=== PATIENT | male | born 1960 | race Caucasian/White ===

== ENCOUNTER 2016-11-17 05:59 | Emergency (ER) | payer BC ==
[2016-11-17 06:36] LABS: BASOPHILS 0.6 % (0.0-2.0); EOSINOPHILS 2.6 % (0.0-6.0); EOSINOPHILS# 0.2 X 10^3uL (0.0-0.4); HEMATOCRIT 46.1 % (42.0-54.0); HEMOGLOBIN 15.5 g/dL (14.0-18.0); LYMPHOCYTES 32.2 % (20.0-40.0); LYMPHOCYTES# 2.3 X 10^3uL (0.8-3.8); MEAN CORPUS. HGB CONCENTRATION 33.6 g/dL (32.0-36.0); MEAN CORPUSCULAR HEMOGLOBIN 29.1 pg (29.0-35.0); MEAN PLATELET VOLUME 9.3 fL (7.4-10.4); MONOCYTES 9.2 % (2.0-10.0); MONOCYTES# 0.6 X 10^3uL (0.2-1.0); NEUTROPHILS 55.4 % (54.0-75.0); NEUTROPHILS# 3.9 X 10^3uL (2.6-6.7); PLATELET COUNT 136 X 10^3uL (130-440); RED BLOOD COUNT 5.34 X 10^6uL (4.20-6.10); RED CELL DISTRIBUTION WIDTH 12.5 % (11.5-14.5)
[2016-11-17 06:38] LABS: BLOOD UREA NITROGEN 17 mg/dL (9-20); CALCIUM 9.8 mg/dL (8.4-10.2); CHLORIDE 106 mmol/L (98-107); EST GLOMERULAR FILTRATION RATE > 60 mL/min; POTASSIUM 3.8 mmol/L (3.5-5.1); SODIUM 140 mmol/L (137-145)
[2016-11-17 06:52] LABS: GLUCOSE 231 mg/dL (70-100)
[2016-11-17 06:53] LABS: TROPONIN I < 0.012 ng/mL (0.00-0.034)
--- NOTE | 2016-11-17 07:27 | ER PHYSICIAN DOCUMENTATION ---
Physician Documentation [facility] ([place], [place]) Name:Leonel Dia Age:56 yrs Sex:Male :1960 Arrival Date:11/17/2016 Time:05:59 Bed4 Private MD:Physician, No ED Josef Martin Disposition: 11/17/16 07:14 Discharged to Home/Self Care. Impression: Dyspnea, Insomnia. - Condition is Good. - Discharge Instructions: Altitude - ALTITUDE SICKNESS. - Medical Reconciliation form form. - Follow up: Private Physician; When: As needed; Reason: Continuance of care. - Problem is new. - Symptoms have improved. HPI: 11/17 06:08 This 56 yrs old Male presents to ER via Walk In with complaints of Shortness tl1 Of Breath. 06:08 The patient has shortness of breath at rest, while exercising, that woke him/her from tl1 sleep, that occurred. Onset: The symptom(s)/episode began/occurred gradually, 3 day(s) ago. Duration: The symptoms are continuous. The patient's shortness of breath is aggravated by exertion, light activity, prone position, is alleviated by rest, sitting up. Associated signs and symptoms: Pertinent positives: non-productive cough, Pertinent negatives: chest pain. Severity of symptoms: At their worst the symptoms were moderate. Risk Factors Risk factors for coronary artery disease include: A history of diabetes. A family history of coronary artery disease. A history of high cholesterol. A history of hypertension. The risk factors for pulmonary embolism include:. He drove out here from [place] arriving 4 days ago. For the last 3 days he has had progressive RIVERA and air hunger, especially at night. He has mild orthopnea and awakened at 0330 this AM short of breath and anxious, and was brought to the ED by his . He has had no CP , except for some sharp pleuritic CP in the right lateral chest area yesterday while on a Jeep ride. No f/c/s. No pain or swelling in his legs. No hemoptysis. No h/o, or RF for PE other than the long car trip out here.. Historical: - Allergies: No known drug Allergies; - PMHx: Diabetes - NIDDM; HYPERTENSION; - Tetanus: < 10 years. - Ebola Screening: : Patient negative for fever greater than or equal to 101.5 degrees Fahrenheit, and additional compatible Ebola Virus Disease symptoms. Patient denies exposure to infectious person. Patient denies travel to an Ebola-affected area in the 21 days before illness onset. No symptoms or risks identified at this time. . - Immunization history: Pneumococcal vaccine status is unknown, Flu Vaccine < 1 year. - Social history: Smoking status: Patient states was never smoker of tobacco. ROS: 06:29 Respiratory: Positive for cough, dyspnea on exertion, orthopnea, shortness of breath, tl1 Negative for hemoptysis, pleurisy, wheezing. 06:29 All other systems are negative. Exam: 06:30 Constitutional: This is a well developed, well nourished patient who is awake, alert, tl1 and in no acute distress. Head/Face: Normocephalic, atraumatic. 06:30 Neck: Trachea midline, no thyromegaly or masses palpated, and no cervical tl1 lymphadenopathy. Supple, full range of motion without nuchal rigidity, or vertebral point tenderness. No Meningismus. 06:30 Chest/axilla: Inspection: normal, Palpation: tenderness, is not appreciated. 06:30 Cardiovascular: Rate: normal, Rhythm: regular, Heart sounds: normal, Edema: is not appreciated. 06:30 Respiratory: the patient does not display signs of respiratory distress, Respirations: normal, Breath sounds: are normal. 06:30 Abdomen/GI: Inspection: abdomen appears normal, Palpation: abdomen is soft and non-tender, no hepatojugular reflux.. 06:30 Musculoskeletal/extremity: Exam is negative for acute changes, calf tenderness, edema. 06:30 Skin: Exam negative for acute changes. 06:30 Neuro: Exam negative for acute changes. Vital Signs: 06:03 BP 159 / 89; Pulse 89; Resp 19; Temp 98(T); Pulse Ox 93% on R/A; Weight 90.72 kg; bw2 Height 6 ft. (182.88 cm); Pain 0/10; 06:30 BP 143 / 85 (auto/); tg 06:35 Pulse 71 MON; Resp 20; Pulse Ox 92% ; tg 06:03 Body Mass Index 27.12 (90.72 kg, 182.88 cm) bw2 MDM: 06:07 Patient medically screened. tl1 06:24 EKG attached bw2 06:32 Differential diagnosis: Anxiety Reaction CHF exacerbation, Chronic Obstructive tl1 Pulmonary Disease Myocardial Infarction pneumonia, Pneumothorax pulmonary edema, Pulmonary Embolism Unstable Angina. Antibiotic administration: Not indicated. The patient's pulmonary embolism risk score was calculated as follows: No Risks (0 Pts). Data reviewed: vital signs, nurses notes, lab test result(s), EKG, radiologic studies, and as a result, I will. Data interpreted: developmental psychologist: rate is 90 beats/min, Pulse oximetry: on room air is 93 %. Test interpretation: by ED physician or midlevel provider: plain radiologic studies, ECG. Counseling: I had a detailed discussion with the patient and/or guardian regarding: the historical points, exam findings, and any diagnostic results supporting the discharge/admit diagnosis, lab results, radiology results, to return to the emergency department if symptoms worsen or persist or if there are any questions or concerns that arise at home. ECG:. 06:36 ED course: CXR shows ?? prominence of the pulmonary vessels. 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 This occurs quite a bit jm to tourists here. Pt's w/u is negative for any acute disease. Pt told in order to get some sleep he may need to descend. He does not qualify for 02 as his RA sats while awake are consistently over 90%. . 11/17 06:37 Order name: CBC AUTO DIF, MDIF/RMOR IF IND [facility] 11/17 06:53 Order name: BASIC METABOLIC PANEL [facility] 11/17 06:53 Order name: BNP,NT-PRO [facility] 11/17 06:53 Order name: TROPONIN I [facility] 11/17 07:43 Order name: DDIMER [facility] 11/17 09:50 Order name: CHEST; SINGLE [place] [id number] [facility] 11/17 06:09 Order name: 12-lead EKG; Complete Time: 06:16 [facility] 11/17 06:09 Order name: Continuous Cardiac Monitoring; Complete Time: 06:16 [facility] 11/17 06:09 Order name: I & O; Complete Time: 06:16 11/17 06:09 Order name: Iv Saline Lock; Complete Time: 06:16 [facility] 11/17 06:09 Order name: Oxygen; Complete Time: 06:16 [facility] 11/17 06:09 Order name: Pulse Ox Continuous; Complete Time: 06:16 tl1 EC:07 Rate is 69 beats/min. Rhythm is regular, Normal Sinus Rhythm. QRS [place] is Normal. TN tl1 interval is normal at 194 msec. QRS interval is normal at 97 msec. QT interval is normal at 455 msec. No Q waves. T waves are Normal. No ST changes noted. Clinical impression: NSR with low voltage in the precordial leads, with delayed R wave progression, ? suggestive of ?? old AWMI. Interpreted by me. Reviewed by me. Dispensed Medications: 06:20 Drug: NS 0.9% 1000 ml; Route: IV; Rate: bolus; Site: left antecubital; bw2 06:50 Follow up: IV Status: Completed infusion bw2 Signatures: Simon Michelle, RN RN tg Zbigniew Young MD MD jm Leigh, Tom, MD MD tl1 Pallavi York bw2
--- NOTE | 2016-11-17 07:27 | ER NURSING DOCUMENTATION ---
Nurse's Notes [facility] Name:Leonel Dia Age:56 yrs Sex:Male :1960 Arrival Date:11/17/2016 Time:05:59 Bed4 Private MD:Physician, No Diagnosis:Dyspnea;Insomnia Presentation: 11/17 06:00 Presenting complaint: Patient states: he has shortness of breath after arriving at high bw2 altitude 3 days ago. pt states he is from [place]. pt denies chest pain. Transition of care: Home. 06:00 Acuity: VANESSA 2 bw2 06:00 Method Of Arrival: Walk In 2 Triage Assessment: 06:02 General: Appears in no apparent distress, Behavior is anxious, appropriate for age, bw2 cooperative. Pain: Denies pain. Respiratory: Reports shortness of breath at rest on exertion Onset: The symptoms/episode began/occurred yesterday, the patient has mild shortness of breath. Historical: - Allergies: No known drug Allergies; - PMHx: Diabetes - NIDDM; HYPERTENSION; - Tetanus: < 10 years. - Ebola Screening: : Patient negative for fever greater than or equal to 101.5 degrees Fahrenheit, and additional compatible Ebola Virus Disease symptoms. Patient denies exposure to infectious person. Patient denies travel to an Ebola-affected area in the 21 days before illness onset. No symptoms or risks identified at this time. . - Immunization history: Pneumococcal vaccine status is unknown, Flu Vaccine < 1 year. - Social history: Smoking status: Patient states was never smoker of tobacco. Screenin:13 Infectious Disease Risk None. Abuse screen: Denies threats or abuse. Nutritional bw2 screening: No deficits noted. Assessment: 06:13 Cardiovascular: No deficits noted. Rhythm is regular. Respiratory: Airway is patent bw2 Respiratory effort is even, unlabored, Breath sounds are clear bilaterally. Reports air hunger. GI: No deficits noted. Vital Signs: 06:03 BP 159 / 89; Pulse 89; Resp 19; Temp 98(T); Pulse Ox 93% on R/A; Weight 90.72 kg; bw2 Height 6 ft. (182.88 cm); Pain 0/10; 06:30 BP 143 / 85 (auto/); tg 06:35 Pulse 71 MON; Resp 20; Pulse Ox 92% ; tg 06:03 Body Mass Index 27.12 (90.72 kg, 182.88 cm) bw2 ED Course: 06:00 Patient arrived in ED. em2 06:00 Physician, No is Private Physician. em2 06:00 Pallavi York is Primary Nurse. bw2 06:02 Triage completed. bw2 06:07 Josef Guevara MD is Attending Physician. tl1 06:07 EKG done. (by ED staff). em1 06:13 Valuables Remains with patient Patient has correct armband on for positive bw2 identification. Placed in gown. Side rails up X2. Cardiac Monitoring On for Nurse Monitoring only. Pulse Ox - RN Monitoring Only NIBP On - RN Monitoring Only. 06:14 Port Xray Completed. joshua 06:14 Inserted peripheral IV: 18 gauge in left antecubital area and blood collected. bw2 06:24 EKG attached bw2 06:53 Notified ED physician, Dr. Young of critical lab value for glucose 231 with actual bw2 value of 231 No new orders received at this time. 07:41 Primary Nurse role handed off by Pallavi York tg Administered Medications: 06:20 Drug: NS 0.9% 1000 ml; Route: IV; Rate: bolus; Site: left antecubital; bw2 06:50 Follow up: IV Status: Completed infusion bw2 Intake: 06:29 IV: 1000ml (NS); Total: 1000ml. bw2 Outcome: 06:25 Instructed on bw2 07:14 Discharge ordered by . nicolasa 07:23 Discharged to home ambulatory. tg 07:23 Condition: stable 07:23 Discharge Assessment: Patient awake, alert and oriented x 3. No cognitive and/or functional deficits noted. Patient verbalized understanding of disposition instructions. Pt feeling better, No SOB. 07:25 Instructed on discharge instructions, follow up and referral plans. medication usage, tg Prescriptions given X 1. 07:25 IV D/Severiano 07:26 Patient left the ED. tg 07:42 Patient left the ED. tg 11/18 15:35 Discharge F/U Call: Unable to reach: no answer st 15:39 Discharge F/U Call: Spoke with: spouse with permission of patient. other: Name: pt is st doing well. they have no questions or concerns. Signatures: Simon Michelle RN RN tg Twombly, Summer, RN RN st Meyer, John, MD MD jm Abbott, Laura lea [employer], [employer] em1 Meinking-reg, Jo-reg em2 Josef Guevara MD MD tl1 Pallavi York [facility]
--- NOTE | 2016-11-17 09:28 | RADIOLOGY REPORT ---
A limited single portable view of the chest, without prior films for comparison , demonstrates the cardiac silhouette to be within normal limits. Question mild prominence of the central pulmonary vasculature. The lung bullock are clear. No infiltrate, fluid or pneumothorax is seen. IMPRESSION: Question mild prominence of the central pulmonary vasculature. MTDD
== END 2016-11-17 07:43 | disposition home or self-care (01) ==
LOC: ER 05:59
DX: R06.00 Dyspnea, unspecified (principal); G47.00 Insomnia, unspecified; R06.02 Shortness of breath; R05 Cough; R06.01 Orthopnea; T70.29XA Other effects of high altitude, initial encounter; I10 Essential (primary) hypertension; E11.9 Type 2 diabetes mellitus without complications; Z79.899 Other long term (current) drug therapy
CPT/HCPCS: 71010; 80048; 83880; 84484; 85025; 85379; 93005; 99284